=== PATIENT | female | born 1940 | race Native Hawaiian/Other Pacific Islander ===

== ENCOUNTER → 2017-07-28 | Outpatient (CLI) | payer MEDICARE, OTHER ==
[~2017-07-28] MED LIST: ASPI-1182 PO; GLUC1TAB PO; METO-416 PO; SIMV-260 PO; SIMV40TA5 PO; VALS160T2 PO; VERA100C2 PO
== END | disposition home or self-care (01) ==
LOC: RADPV 12:08
PROVIDERS: ATTEND Legal Medicine
DX: M17.0 Bilateral primary osteoarthritis of knee (principal)